=== PATIENT | female | born 1965 | race Caucasian/White ===

== ENCOUNTER → 2016-10-30 | Outpatient (REF) ==
--- NOTE | 2016-10-31 02:32 | REP ---
Clinical: Pain and disability. Technique: AP, lateral, bilateral oblique views left foot . Findings: The osseous structures and joint spaces are intact and normal are age. There is no evidence for acute fracture or dislocation. Surrounding soft tissues are unremarkable. No subcutaneous emphysema or radiodense foreign body. Impression: Mild age-related changes. No acute fracture or dislocation. No overt osteoarthritic degenerative changes. Signed by Meño Caro MD 10/31/2016 02:24 A
--- NOTE | 2016-10-31 03:07 | REP ---
Clinical: Pain and disability. Technique: AP, lateral, open mouth views of the cervical spine. Findings: Alignment and lordosis maintained. No acute fracture / compression injury or subluxation. Lateral view best demonstrates moderate to early advanced multilevel degenerative changes including anterior spurring/osteophyte formation, endplate sclerosis and disc space narrowing. Prevertebral soft tissues are normal. Spinous processes are intact. Open mouth view demonstrates normal C1-C2 articulation and odontoid process. 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 No acute fracture / compression injury or subluxation. Signed by Meño Caro MD 10/31/2016 02:58 A
== END ==
LOC: M SMT 13:00
PROVIDERS: ATTEND Internal Medicine
DX: Z02.1 Encounter for pre-employment examination (principal)

== ENCOUNTER → 2021-07-11 | Outpatient (REF) | LOC: M PLAIMG 14:18 | PROVIDERS: ATTEND Internal Medicine | DX: M54.9 Dorsalgia, unspecified (principal) ==

== ENCOUNTER → 2021-11-29 | Outpatient (REF) | LOC: M PLAIMG 12:48 | PROVIDERS: ATTEND Internal Medicine | DX: M25.511 Pain in right shoulder (principal) ==

== ENCOUNTER → 2023-02-13 | Outpatient (REF) | LOC: M PLAIMG 13:09 | PROVIDERS: ATTEND Internal Medicine | DX: M54.2 Cervicalgia (principal); M79.671 Pain in right foot ==